=== PATIENT | male | born 1975 | race Caucasian/White ===

== ENCOUNTER 2020-11-08 11:45 | Emergency (ER) | payer OTHER, SELFPAY ==
--- NOTE | ~2020-11-08 | XR_ITS ---
EXAMINATION: XR chest 1V portable INDICATION: Shortness of breath TECHNIQUE: Portable AP chest at 1206 hours COMPARISON: 09/03/2008 FINDINGS: The lungs are free of acute opacities. A chronic nodule of the left lower lung zone is cons istent with old granulomatous disease. There is no pleural effusion or pneumothorax. The cardiomedias tinal silhouette is normal. IMPRESSION: 1. No acute cardiopulmonary abnormality. Reviewed, dictated and finalized at location A. ROTOR CREW CHIEF
--- NOTE | 2020-11-08 11:47 | ECG_ITS ---
Measurements Intervals [place] Rate: 68 P: 51 AK: 185 QRS: -22 QRSD: 99 T: 21 QT: 414 QTc: 442 Interpretive Statements SINUS RHYTHM BASELINE ARTIFACT- II, III, AVF NORMAL ECG Electronically Signed On 11-08-2020 12:39:16 PACKAGING LINE ATTENDANT by Edgard Guerrier D.O.
[2020-11-08 12:02] VITALS: BP 196/99; PULSE 70; RESP 16; TEMP 36.9; O2SAT 96
[2020-11-08 12:13] VITALS: O2SAT 96
[2020-11-08 12:16] LABS: Basophils Percent Auto 0.4 % (0.2-1.2); Eosinophils Absolute Auto 0.2 K/mm3 (0-0.3); Eosinophils Percent Auto 2.6 % (0-4.4); Hematocrit 45.3 % (42.0-52.0); Hemoglobin 15.6 g/dL (14.0-18.0); Immature Granulocyte Absolute 0.03 K/mm3 (0.00-0.031); Immature Granulocyte Percent A 0.3 % (0-0.5); Lymphocytes Percent Auto 31.3 % (18.3-44.2); Mean Corpuscular HGB Conc 34.4 g/dl (32-36); Mean Corpuscular Volume 95.8 fl (80-100); Mean Platelet Volume 10.8 fl (7.4-10.4); Monocytes Absolute Auto 0.8 K/mm3 (0.1-0.6); Monocytes Percent Auto 8.7 % (2.6-8.5); Neutrophils Absolute Auto 5.1 K/mm3 (1.3-6.7); Neutrophils Percent Auto 56.7 % (45.5-73.1); Platelet Count Result 220 k/mm3 (150-375); Red Blood Count 4.73 M/mm3 (4.6-6.20); Red Cell Distribution Width 12.5 % (11.5-14.5)
[2020-11-08 12:47] LABS: Anion Gap 10 mmol/L (8-16); Blood Urea Nitrogen 17 mg/dL (9-20); Calcium 8.8 mg/dL (8.4-10.2); Carbon Dioxide 27 mmol/L (22-30); Chloride 102 mmol/L (98-107); Estimated Glomerular Filt Rate > 60; Glucose 108 mg/dL (75-110); Potassium 4.2 mmol/L (3.4-5.0); Sodium 139 mmol/L (137-145)
--- NOTE | 2020-11-08 12:58 | ED.SOB ---
HPI - SOB/Dyspnea General Chief Complaint: Shortness of Breath/Dyspnea Stated Complaint: left arm pain, sob, nausea Time Seen by Provider: 11/08/20 12:09 History of Present Illness HPI Narrative: Patient is a 44-year-old male who presents ER with exertional shortness of breath. Began today when he walked into work. Associated with central chest tingling. Reoccurred when coming into the ER. Patient also notes that blood pressures been running higher than typical. Typically his systolic blood pressures in the 130s. Upon arrival today his blood pressures in the 190s systolic. Patient reports he felt the lightheadedness after his exertional shortness of breath. Has mild nausea. Patient also reports over the last 3 to 4 days he has been having less than 1 second sharp shooting pain from his left elbow down to his left hand. It is not associate with exertion referred here by his PCP. Related Data Home Medications Medication Instructions Recorded Confirmed cetirizine 10 mg tablet 10 mg PO DAILY 08/23/19 08/23/20 Allergies Allergy/AdvReac Type Severity Reaction Status Date / Time metformin AdvReac Severe explosive Verified 05/10/20 10:22 diarrhea and cramps Review of Systems Review of Systems: All systems reviewed & are unremarkable except as noted in HPI and below Constitutional: Constitutional: Denies chills, Denies fever(s) and Denies weakness ENT: Denies as per HPI and Denies nasal congestion Cardiovascular: Cardiovascular: Reports chest pain, Denies rapid heart rate and Denies radiating jaw, neck or arm pain Respiratory: Respiratory: Denies cough, Reports dyspnea and Denies wheezing Gastrointestinal: Gastrointestinal: Denies abdominal pain, Denies diarrhea, Reports nausea and Denies vomiting Musculoskeletal: Musculoskeletal: Denies back pain, Denies arthralgias and Denies muscle cramps Neurologic: Reports dizziness, Denies headache(s), Denies focal weakness and Denies numbness PMF Past Medical History Medical History (Updated 11/08/20 @ 16:02 by Ronny Davis MD) Essential (primary) hypertension Mixed hyperlipidemia Type 2 diabetes mellitus with hyperglycemia Surgical History Surgical History (Updated 11/08/20 @ 13:01 by Ronny Davis MD) No pertinent past surgical history Family History Family History (Updated 11/08/20 @ 13:01 by Ronny Davis MD) Mother Hypertension Father Heart disease 2 MIs by the age of 46. Social History Social History Smoking status: Former smoker Second hand tobacco smoke exposure: No Smoking end date: 09/21/14 Alcohol intake: current Exam Narrative: Exam Narrative: GENERAL: Well-appearing, morbidly obese, and in no acute distress. HEAD: Normocephalic, atraumatic. ENT: Mucous membranes moist. CHEST: Clear to auscultation. No respiratory distress. HEART: Regular rate and rhythm. Normal peripheral pulses. ABDOMEN: Soft, nontender, nondistended. EXTREMITIES: Normal range of motion. No edema. SKIN: Warm, dry, no rash. NEURO: Alert and oriented x3. Course Course Emergency Course: Patient resting comfortably. Chest pain-free. Troponins negative x2. Blood pressures come down on his own. Discussed with patient's PCP who would like patient follow-up outpatient for stress test. He would like the patient started on clonidine 0.1 mg twice a day. Patient verbalized understanding of treatment plan. Discharge home. Vital Signs Vital signs: Vital Signs Temperature 98.4 F 11/08/20 12:02 Pulse Rate 70 11/08/20 12:02 Respiratory Rate 16 11/08/20 12:02 Blood Pressure 196/99 H 11/08/20 12:02 Pulse Oximetry 96 11/08/20 12:02 Temperature 98.4 F 11/08/20 12:02 Pulse Rate 69 11/08/20 14:11 Respiratory Rate 20 11/08/20 14:11 Blood Pressure 171/93 H 11/08/20 14:11 Pulse Oximetry 95 11/08/20 14:11 MDM - SOB/Dyspnea Lab Data Result
[2020-11-08 13:19] VITALS: BP 183/88; PULSE 96; RESP 17; O2SAT 96
[2020-11-08 13:39] LABS: Troponin I < 0.012 ng/mL (0.000-0.034)
[2020-11-08 14:11] VITALS: BP 171/93; PULSE 69; RESP 20; O2SAT 95
[2020-11-08] MEDS: cloNIDine HCL 0.1 MG TABLET PO (14:37)
[2020-11-08 15:30] VITALS: BP 138/90; PULSE 74; RESP 16; O2SAT 96
[2020-11-08 15:46] LABS: Troponin I < 0.012 ng/mL (0.000-0.034)
[2020-11-08 16:31] VITALS: BP 138/88; PULSE 80; RESP 18; O2SAT 97
== END 2020-11-08 16:33 | disposition home or self-care (01) ==
PROVIDERS: Emergency Provider Emergency Medicine; PCP Internal Medicine
DX: R07.9 Chest pain, unspecified (principal); I10 Essential (primary) hypertension; E78.5 Hyperlipidemia, unspecified; E11.9 Type 2 diabetes mellitus without complications
CPT/HCPCS: 36415; 71045; 80048; 84484; 85025; 93005; 99284; A9270

== ENCOUNTER 2020-12-26 08:15 | Outpatient (CLI) | payer OTHER, SELFPAY | END 2020-12-26 08:16 | disposition home or self-care (01) | LOC: ANHCOVIDVC 08:15 | PROVIDERS: PCP Internal Medicine | DX: Z23 Encounter for immunization (principal) | CPT/HCPCS: 0001A; 91300 ==

== ENCOUNTER 2021-01-16 08:32 | Outpatient (CLI) | payer OTHER, SELFPAY | END 2021-01-16 08:33 | PROVIDERS: PCP Internal Medicine | DX: Z23 Encounter for immunization (principal) | CPT/HCPCS: 0002A; 91300 ==

== ENCOUNTER → 2021-07-24 16:56 | Outpatient (CLI) | payer OTHER, SELFPAY ==
--- NOTE | ~2021-07-24 | XR_ITS ---
XR ankle LT min 3V DATE: 07/24/2021 17:13 INDICATION: Achilles tendinitis TECHNIQUE: 4 views COMPARISON: None FINDINGS: There is prominent plantar and posterior calcaneal enthesopathy as well as 3.3 x 10 mm stanley cification of the plantar aponeurosis. No fracture or dislocation of the ankle or disruption of the ankle mortise. No periosteal reaction or bone destruction. IMPRESSION: Prominent plantar and posterior calcaneal enthesopathy and plantar aponeurosis calcificat ion Reviewed, dictated and finalized at location A. IMPRESSION: Prominent plantar and posterior calcaneal enthesopathy and plantar aponeurosis calcification
== END ==
PROVIDERS: PCP Internal Medicine; Visit Provider Internal Medicine
DX: M76.62 Achilles tendinitis, left leg (principal); M77.32 Calcaneal spur, left foot
CPT/HCPCS: 73610

== ENCOUNTER 2021-07-31 01:01 | Day surgery (SDC) | payer OTHER, SELFPAY ==
[2021-07-16 13:49] VITALS: BMI 40.6
[2021-07-31 09:58] VITALS: BP 158/93; PULSE 82; RESP 18; TEMP 36.3; O2SAT 96
[2021-07-31] MEDS: LACTATED RINGERS 1,000 ML 150 ML IV CONT (10:08)
[2021-07-31 10:25] LABS: Glucose Point of Care 142 mg/dl (65-105)
--- NOTE | 2021-07-31 10:29 | WPDANESEPPF ---
Anes - Initial Pre Proc Eval Procedure: Operation Date: 07/31/21 11:00 Proposed Procedures p Esophagogastroduodenoscopy - Lukas Fletcher MD Date/Time: 07/31/21 10:29 Surgeon: Lukas Fletcher MD Pre Op Diagnosis: abdominal pain, GERD Patient Data Age: 45 Gender: M Height: 1.83 m Weight: 150.8 kg Last Vital Signs Temp 36.3 C L 07/31/21 09:58 Pulse 82 07/31/21 09:58 Resp 18 07/31/21 09:58 BP 158/93 H 07/31/21 09:58 Pulse Ox 96 07/31/21 09:58 Allergies Allergy/AdvReac Type Severity Reaction Status Date / Time No Known Allergies Allergy Verified 07/31/21 09:55 Home Medications Medication Instructions Recorded Confirmed Type glimepiride 4 mg tablet 4 mg PO QAM #90 tablet 11/12/20 07/16/21 Rx enalapril maleate 10 mg tablet 10 mg PO DAILY #90 tablet 11/20/20 07/16/21 Rx fenofibric acid (choline) 135 mg 135 mg PO DAILY #90 cap 03/18/21 07/16/21 Rx capsule,delayed release metoprolol succinate 100 mg 100 mg PO DAILY #90 tablet 03/18/21 07/16/21 Rx tablet,extended release 24 hr pioglitazone 15 mg tablet 15 mg PO DAILY #90 tablet 05/28/21 07/16/21 Rx atorvastatin 10 mg tablet 10 mg PO DAILY #90 tablet 07/22/21 07/31/21 Rx Laboratory Tests 07/31/21 10:23 POC Capillary Glucose 142 mg/dl H mg/dl (65-105) Patient hx anesthesia problems: none Family hx anesthesia problems: none Results Review: All pre-operative results and documents have been reviewed as part of the pre-operative evaluation. [facility] Past Medical History Medical History Essential (primary) hypertension Mixed hyperlipidemia Type 2 diabetes mellitus with hyperglycemia Surgical History Surgical History No pertinent past surgical history Family History Family History Mother Hypertension Father Heart disease 2 MIs by the age of 46. Social History Social History Smoking packs per day: 1 Smoking cigarettes per day: 20.0 Years smoked: 35 Smoking pack-years: 35.00 Tobacco type: cigarettes Second hand tobacco smoke exposure: No Smoking end date: 09/21/14 Alcohol intake: current Drinks per week: 56 Alcohol use details: 8 BEERS/DAY, MIXED WITH HARD LIQUOR AT TIMES Substance use: current Substance use type: marijuana Other substance usage details: SMOKES MARIJUANA DAILY Living arrangements: with family Spiritual care concerns: No Anes - Eval Final PreProcedure Day of Procedure 07/31/21 10:29 Patient weight: obese Heart: regular rate and rhythm Lungs: clear to auscultation and normal air movement Airway: Mallampati scale class II Neurological: alert and oriented Last oral intake: >/= 8 hours ASA classification: III Emergent: no Anesthetic plan: proceed Anesthesia type and monitoring: general GIVS Results Review: All pre-operative results and documents have been reviewed as part of the pre-operative evaluation. Informed Consent: The patient's anesthetic plan and its attendant risks and benefits were discussed with the patient/family/POA. Questions were solicited and answers provided to the satisfaction of the patient/family/POA.
--- NOTE | 2021-07-31 11:01 | PM.HPGS ---
History of Present Illness History of Present Illness Consent: Risks, benefits, and alternatives have been discussed and questions answered. Patient agrees to proceed with procedure. Chief complaint: abdominal pain, GERD Narrative: Orlando Gonsales is a 45 year old male with ruq pain, had ultrasound that showed fatty liver (he is obese), also he has h/o GERD Review of Systems Constitutional: Constitutional: Denies headache(s) and Denies weakness Eyes: Eyes: Denies blurry vision ENT: Reports Normal hearing present, Denies headache(s) and Denies neck pain Cardiovascular: Cardiovascular: Denies chest pain and Denies dyspnea Respiratory: Respiratory: Denies dyspnea Gastrointestinal: Gastrointestinal: Reports no additional gastrointestinal complaints Genitourinary: Genitourinary: Denies dysuria Musculoskeletal: Musculoskeletal: Denies neck pain Integumentary/Breasts: Skin/Breast: Denies dry skin Neurologic: Reports Normal hearing present, Denies headache(s) and Denies weakness Psychiatric: Psychiatric: Denies anxiety Endocrine: Endocrine: Denies change in body appearance Hematologic/Lymphatic: Hematologic/Lymphatic: Denies easy bleeding Allergic/Immunologic: Allergic/Immunologic: Denies urticaria PMFSH Past Medical History Medical History (Updated 07/31/21 @ 11:02 by Lukas Fletcher MD) Essential (primary) hypertension Mixed hyperlipidemia RUQ pain Type 2 diabetes mellitus with hyperglycemia Surgical History Surgical History No pertinent past surgical history Family History Family History Mother Hypertension Father Heart disease 2 MIs by the age of 46. Social History Social History Smoking packs per day: 1 Smoking cigarettes per day: 20.0 Years smoked: 35 Smoking pack-years: 35.00 Tobacco type: cigarettes Second hand tobacco smoke exposure: No Smoking end date: 09/21/14 Alcohol intake: current Drinks per week: 56 Alcohol use details: 8 BEERS/DAY, MIXED WITH HARD LIQUOR AT TIMES Substance use: current Substance use type: marijuana Other substance usage details: SMOKES MARIJUANA DAILY Living arrangements: with family Spiritual care concerns: No Meds Home Medications and Allergies Home Medications Medication Instructions Recorded Confirmed Type glimepiride 4 mg tablet 4 mg PO QAM #90 tablet 11/12/20 07/16/21 Rx enalapril maleate 10 mg tablet 10 mg PO DAILY #90 tablet 11/20/20 07/16/21 Rx fenofibric acid (choline) 135 mg 135 mg PO DAILY #90 cap 03/18/21 07/16/21 Rx capsule,delayed release metoprolol succinate 100 mg 100 mg PO DAILY #90 tablet 03/18/21 07/16/21 Rx tablet,extended release 24 hr pioglitazone 15 mg tablet 15 mg PO DAILY #90 tablet 05/28/21 07/16/21 Rx atorvastatin 10 mg tablet 10 mg PO DAILY #90 tablet 07/22/21 07/31/21 Rx Allergies Allergy/AdvReac Type Severity Reaction Status Date / Time No Known Allergies Allergy Verified 07/31/21 09:55 Vital Signs Vital Signs - 24 hr 07/31/21 09:58 Temperature 97.4 F L Pulse Rate 82 Respiratory Rate 18 Blood Pressure 158/93 H Pulse Oximetry 96 Exam Const: General: comfortable and no acute distress HENMT: General nose exam: Normal nares present Eyes: General: appearance normal, both eyes and all related structures Neck: Neck: no JVD Resp: Auscultation: clear to auscultation bilaterally Cardio: Rate: regular rate Rhythm: regular rhythm GI: Inspection: non-distended GI Palp: Yes Soft to palpation Skin: General skin exam: normal color Neuro: General: gait normal Speech: normal speech Extrem: General: normal to inspection Psych: Mental Status: mental status grossly normal Assessment and Plan Assessment and plan (1) RUQ pain: Code(s): R10.11 - Right upper quadrant pa
[2021-07-31] MEDS: BENZOCAINE (*SP) 60 ML SPRAY CAN (HURRICAINE) 1 SPRAY MUCOUS MEM (11:05)
[2021-07-31 11:18] VITALS: BP 141/84; PULSE 77; RESP 24; O2SAT 95
[2021-07-31 11:28] VITALS: BP 145/79; PULSE 64; RESP 17; O2SAT 93
[2021-07-31 11:38] VITALS: BP 132/83; PULSE 62; RESP 19; O2SAT 95
== END 2021-07-31 11:53 | disposition home or self-care (01) ==
PROVIDERS: PCP Internal Medicine; Visit Provider Internal Medicine Gastroenterology
PROC: 0DJ08ZZ Inspection of Upper Intestinal Tract, Via Natural or Artificial Opening Endoscopic (ICD-10-PCS; CPT 43235; principal; 2021-07-31 11:00)
DX: K21.9 Gastro-esophageal reflux disease without esophagitis (principal); K29.70 Gastritis, unspecified, without bleeding; K76.0 Fatty (change of) liver, not elsewhere classified; I10 Essential (primary) hypertension; E78.2 Mixed hyperlipidemia; E11.9 Type 2 diabetes mellitus without complications; Z79.84 Long term (current) use of oral hypoglycemic drugs; Z87.891 Personal history of nicotine dependence; F12.90 Cannabis use, unspecified, uncomplicated; E66.9 Obesity, unspecified; Z68.42 Body mass index [BMI] 45.0-49.9, adult
CPT/HCPCS: 43239; 82948; 88305; J2704; J7120

== ENCOUNTER 2022-05-16 08:29 | Outpatient (CLI) | payer OTHER, SELFPAY ==
[2022-05-16 19:26] LABS: Cholesterol 116 mg/dL (0-200); HDL Direct 34 mg/dL; Triglycerides 135 mg/dL (<150)
[2022-05-16 19:37] LABS: LDL Cholesterol Direct 42 mg/dL
[2022-05-16 19:42] LABS: Hemoglobin A1C 5.1 % (<5.7)
[2022-05-16 19:53] LABS: Creatinine Urine 130.4 mg/dL
[2022-05-16 19:57] LABS: MALB Creatinine Ratio 16.3 mg/g (0-30); Microalbumin Urine Random 21.2 mg/L (0-16.7)
== END 2022-05-16 08:30 | disposition home or self-care (01) ==
LOC: ANHGOSHLAB 08:30
PROVIDERS: PCP Family Medicine; Visit Provider Internal Medicine
DX: E11.9 Type 2 diabetes mellitus without complications (principal); E78.2 Mixed hyperlipidemia
CPT/HCPCS: 36415; 80061; 82043; 83036

== ENCOUNTER 2022-11-21 08:59 | Outpatient (CLI) | payer OTHER, SELFPAY ==
[2022-11-21 18:48] LABS: Cholesterol 146 mg/dL (0-200); HDL Direct 31 mg/dL; Triglycerides 172 mg/dL (<150)
[2022-11-21 18:59] LABS: LDL Cholesterol Direct 74 mg/dL
[2022-11-21 19:25] LABS: Hemoglobin A1C 7.6 % (<5.7)
== END 2022-11-21 09:00 | disposition home or self-care (01) ==
LOC: ANHGOSHLAB 09:01
PROVIDERS: PCP Family Medicine; Visit Provider Family Medicine
DX: E11.9 Type 2 diabetes mellitus without complications (principal); E78.2 Mixed hyperlipidemia
CPT/HCPCS: 36415; 80061; 83036

== ENCOUNTER 2023-03-23 09:10 | Outpatient (CLI) | payer OTHER, SELFPAY ==
[2023-03-23 19:19] LABS: Basophils Percent Auto 0.4 % (0.2-1.2); Eosinophils Absolute Auto 0.1 K/mm3 (0-0.3); Eosinophils Percent Auto 1.6 % (0-4.4); Hematocrit 41.2 % (42.0-52.0); Hemoglobin 14.4 g/dL (14.0-18.0); Immature Granulocyte Absolute 0.03 K/mm3 (0.00-0.031); Immature Granulocyte Percent A 0.4 % (0-0.5); Lymphocytes Absolute Auto 2.43 K/mm3 (0.9-3.2); Lymphocytes Percent Auto 32.5 % (18.3-44.2); Mean Corpuscular Hemoglobin 32.4 pg (26-34); Mean Corpuscular Volume 92.8 fl (80-100); Mean Platelet Volume 11.1 fl (7.4-10.4); Monocytes Absolute Auto 0.7 K/mm3 (0.1-0.6); Monocytes Percent Auto 8.7 % (2.6-8.5); Neutrophils Absolute Auto 4.2 K/mm3 (1.3-6.7); Neutrophils Percent Auto 56.4 % (45.5-73.1); Platelet Count Result 218 k/mm3 (150-375); Red Blood Count 4.44 M/mm3 (4.6-6.20); Red Cell Distribution Width 12.4 % (11.5-14.5); White Blood Count 7.5 K/mm3 (4.5-10.0)
[2023-03-23 19:46] LABS: Creatinine Urine 71.8 mg/dL
[2023-03-23 19:49] LABS: MALB Creatinine Ratio 22.8 mg/g (0-30); Microalbumin Urine Random 16.4 mg/L (0-16.7)
[2023-03-23 19:54] LABS: Alanine Aminotransferase 35 U/L (6-50); Albumin Level 4.7 g/dL (3.5-5.1); Alkaline Phosphatase 55 U/L (38-126); Anion Gap 10 mmol/L (8-16); Aspartate Amino Transferase 49 U/L (17-59); Bilirubin,Total 0.6 mg/dL (0.2-1.3); Blood Urea Nitrogen 16 mg/dL (9-20); Calcium 8.9 mg/dL (8.4-10.2); Carbon Dioxide 27 mmol/L (22-30); Chloride 100 mmol/L (98-107); Cholesterol 141 mg/dL (0-200); Estimated Glomerular Filt Rate > 60; Glucose 104 mg/dL (65-110); HDL Direct 39 mg/dL; Sodium 137 mmol/L (137-145); Triglycerides 234 mg/dL (<150)
[2023-03-23 20:05] LABS: LDL Cholesterol Direct 57 mg/dL
[2023-03-23 20:59] LABS: Folic Acid 6.1 ng/mL (2.76->20)
[2023-03-23 21:01] LABS: Hemoglobin A1C 5.8 % (<5.7)
== END 2023-03-23 09:11 | disposition home or self-care (01) ==
LOC: ANHGOSHLAB 09:11
PROVIDERS: PCP Family Medicine; Visit Provider Family Medicine
DX: E11.9 Type 2 diabetes mellitus without complications (principal); G62.9 Polyneuropathy, unspecified; Z13.220 Encounter for screening for lipoid disorders; R53.83 Other fatigue; Z13.228 Encounter for screening for other metabolic disorders
CPT/HCPCS: 36415; 80053; 80061; 82043; 82607; 82746; 83036; 85025

== ENCOUNTER 2023-08-17 14:54 | Outpatient (CLI) | payer OTHER, SELFPAY ==
[2023-08-17 19:11] LABS: Uric Acid 9.8 mg/dL (3.5-8.5)
== END 2023-08-17 14:55 | disposition home or self-care (01) ==
LOC: ANHGOSHLAB 14:55
PROVIDERS: PCP Family Medicine; Visit Provider Family Medicine
DX: M10.9 Gout, unspecified (principal)
CPT/HCPCS: 36415; 84550

== ENCOUNTER 2023-10-15 15:04 | Outpatient (CLI) | payer OTHER, SELFPAY ==
[2023-10-15 19:10] LABS: Basophils Percent Auto 0.5 % (0.2-1.2); Eosinophils Absolute Auto 0.3 K/mm3 (0-0.3); Eosinophils Percent Auto 3.7 % (0-4.4); Hematocrit 45.1 % (42.0-52.0); Hemoglobin 15.7 g/dL (14.0-18.0); Immature Granulocyte Absolute 0.02 K/mm3 (0.00-0.031); Immature Granulocyte Percent A 0.3 % (0-0.5); Lymphocytes Absolute Auto 2.66 K/mm3 (0.9-3.2); Lymphocytes Percent Auto 36.1 % (18.3-44.2); Mean Corpuscular HGB Conc 34.8 g/dl (32-36); Mean Corpuscular Hemoglobin 33.5 pg (26-34); Mean Corpuscular Volume 96.2 fl (80-100); Monocytes Absolute Auto 0.9 K/mm3 (0.1-0.6); Monocytes Percent Auto 11.7 % (2.6-8.5); Neutrophils Absolute Auto 3.5 K/mm3 (1.3-6.7); Neutrophils Percent Auto 47.7 % (45.5-73.1); Platelet Count Result 240 k/mm3 (150-375); Red Blood Count 4.69 M/mm3 (4.6-6.20); White Blood Count 7.4 K/mm3 (4.5-10.0)
[2023-10-15 19:35] LABS: Alanine Aminotransferase 31 U/L (6-50); Albumin Level 4.4 g/dL (3.5-5.1); Alkaline Phosphatase 62 U/L (38-126); Anion Gap 10 mmol/L (8-16); Aspartate Amino Transferase 54 U/L (17-59); Bilirubin,Total 0.5 mg/dL (0.2-1.3); Blood Urea Nitrogen 17 mg/dL (9-20); Calcium 9.1 mg/dL (8.4-10.2); Carbon Dioxide 27 mmol/L (22-30); Chloride 103 mmol/L (98-107); Cholesterol 193 mg/dL (0-200); Estimated Glomerular Filt Rate > 60; Glucose 84 mg/dL (65-110); HDL Direct 51 mg/dL; Potassium 5.1 mmol/L (3.4-5.0); Sodium 140 mmol/L (137-145); Triglycerides 250 mg/dL (<150)
[2023-10-15 19:45] LABS: LDL Cholesterol Direct 111 mg/dL
[2023-10-15 20:02] LABS: Prostate Specific Antigen 0.7 ng/mL (< OR = 4.0)
[2023-10-15 22:02] LABS: Hemoglobin A1C 5.9 % (<5.7)
== END 2023-10-15 15:05 | disposition home or self-care (01) ==
LOC: ANHGOSHLAB 15:05
PROVIDERS: PCP Family Medicine; Visit Provider Family Medicine
DX: Z13.220 Encounter for screening for lipoid disorders (principal); Z13.228 Encounter for screening for other metabolic disorders; Z12.5 Encounter for screening for malignant neoplasm of prostate; R53.83 Other fatigue; E11.9 Type 2 diabetes mellitus without complications
CPT/HCPCS: 36415; 80053; 80061; 83036; 84153; 85025; G0103

== ENCOUNTER 2023-10-23 10:07 | Emergency (ER) | payer OTHER, SELFPAY ==
--- NOTE | ~2023-10-23 | XR_ITS ---
Clinical Indication: Chest pain PA and lateral views of the chest: Comparison: 11/08/2020 Findings: Calcified granulomas are present. The lungs are otherwise clear, without evidence of focal consolidation or pleural effusion. Cardiomediastinal silhouette is within normal limits. Bones and s oft tissues are unremarkable. Impression: No acute abnormality. Reviewed, dictated and finalized at location . L MEAT PACKER Impression: No acute abnormality.
--- NOTE | 2023-10-23 10:08 | ECG_ITS ---
Measurements Intervals [place] Rate: 64 P: 3 UT: 151 QRS: -25 QRSD: 97 T: 24 QT: 417 QTc: 433 Interpretive Statements SINUS RHYTHM BORDERLINE LEFT AXIS DEVIATION [QRS AXIS < -20] LOW QRS VOLTAGE IN PRECORDIAL LEADS [QRS DEFLECTION < 1.0 mV IN CHEST LEADS] BORDERLINE ECG COMPARED TO ECG 11/08/2020 11:56:12 NO SIGNIFICANT CHANGES Electronically Signed On 10-23-2023 13:53:44 CIRCULAR SAW FILER by Orlando Hart M.D.
[2023-10-23 10:36] LABS: Basophils Percent Auto 0.5 % (0.2-1.2); Eosinophils Absolute Auto 0.2 K/mm3 (0-0.3); Eosinophils Percent Auto 3.9 % (0-4.4); Hemoglobin 14.6 g/dL (14.0-18.0); Immature Granulocyte Absolute 0.01 K/mm3 (0.00-0.031); Immature Granulocyte Percent A 0.2 % (0-0.5); Lymphocytes Absolute Auto 1.79 K/mm3 (0.9-3.2); Lymphocytes Percent Auto 31.5 % (18.3-44.2); Mean Corpuscular HGB Conc 33.2 g/dl (32-36); Mean Corpuscular Hemoglobin 32.2 pg (26-34); Mean Corpuscular Volume 97.1 fl (80-100); Mean Platelet Volume 10.5 fl (7.4-10.4); Monocytes Absolute Auto 0.6 K/mm3 (0.1-0.6); Monocytes Percent Auto 9.9 % (2.6-8.5); Neutrophils Absolute Auto 3.1 K/mm3 (1.3-6.7); Platelet Count Result 168 k/mm3 (150-375); Red Blood Count 4.53 M/mm3 (4.6-6.20); Red Cell Distribution Width 12.4 % (11.5-14.5); White Blood Count 5.7 K/mm3 (4.5-10.0)
[2023-10-23 10:50] LABS: Alanine Aminotransferase 34 U/L (6-50); Albumin Level 4.2 g/dL (3.5-5.1); Alkaline Phosphatase 53 U/L (38-126); Anion Gap 7 mmol/L (8-16); Aspartate Amino Transferase 40 U/L (17-59); Bilirubin,Total 0.9 mg/dL (0.2-1.3); Blood Urea Nitrogen 17 mg/dL (9-20); Calcium 8.7 mg/dL (8.4-10.2); Carbon Dioxide 27 mmol/L (22-30); Chloride 103 mmol/L (98-107); Estimated Glomerular Filt Rate > 60; Glucose 157 mg/dL (65-110); Lipase 63 U/L (23-300); Potassium 3.8 mmol/L (3.4-5.0); Sodium 137 mmol/L (137-145)
[2023-10-23 10:51] LABS: Prothrombin Time 13.1 Seconds (11.1-14.7)
[2023-10-23 10:52] LABS: Partial Thromboplastin Time 26.1 SECONDS (22.3-36.8)
[2023-10-23 11:00] LABS: Troponin I < 0.012 ng/mL (0.000-0.034)
[2023-10-23 11:12] VITALS: BP 153/99; PULSE 63; RESP 15; TEMP 36.4; O2SAT 98
[2023-10-23] MEDS: ASPIRIN 81 MG CHEWABLE TABLET 324 MG PO (13:37)
--- NOTE | 2023-10-23 13:42 | ED.CHESTPAIN ---
HPI - Chest Pain General Chief Complaint: Chest Pain Stated Complaint: left sided CP Time Seen by Provider: 10/23/23 13:42 History of Present Illness HPI narrative: Patient is a 47-year-old male with history of diabetes, hypertension, hyperlipidemia here with chest pain x several months. Patient notes that he has had intermittent chest pains in the past which are usually attributed to his GERD and come on after eating something. He notes that a few months ago it began similarly. He went out to eat and ate something that is noted trigger his GERD in the past. He woke up the next day with chest pain. He notes that it is located on his left upper chest and behind his left shoulder. It occasionally radiates into his neck as well as his left arm. He did things at home which usually helps which include doubling his Nexium, sleeping upright, altering his diet to help with his acid reflux and none of these seemed to be helping this time. He then got a chest cold a couple weeks ago, with symptoms including cough, chest congestion, these have been resolved for the last 1 week. His chest pain has continued which prompted him to come in and get seen to check how his heart is looking. No prior cardiac disease in himself, his father did have multiple heart attacks before the age of 40. Last stress test was a few years ago, normal, no prior cardiac cath. Related Data Home Medications Medication Instructions Recorded Confirmed amlodipine 10 mg tablet 10 mg PO DAILY 06/05/23 08/17/23 doxazosin 2 mg tablet 2 mg PO DAILY 06/05/23 08/17/23 Allergies Allergy/AdvReac Type Severity Reaction Status Date / Time No Known Allergies Allergy Verified 10/15/23 14:19 Review of Systems Review of Systems: All systems reviewed & are unremarkable except as noted in HPI and below [facility] Past Medical History Medical History Essential (primary) hypertension Mixed hyperlipidemia RUQ pain Type 2 diabetes mellitus with hyperglycemia Surgical History Surgical History No pertinent past surgical history Family History Family History Mother Hypertension Father Heart disease 2 MIs by the age of 46. Social History Social History Smoking packs per day: 1 Smoking cigarettes per day: 20.0 Years smoked: 35 Smoking pack-years: 35.00 Smoking status: Former smoker Tobacco type: cigarettes Second hand tobacco smoke exposure: No Smoking end date: 09/21/14 Alcohol intake: current Drinks per week: 30 Alcohol use details: 8 BEERS/DAY, MIXED WITH HARD LIQUOR AT TIMES Substance use: current Substance use type: marijuana Other substance usage details: SMOKES MARIJUANA DAILY Living arrangements: with family Spiritual care concerns: No Exam Narrative: GENERAL: Well-appearing, well-nourished, and in no acute distress. HEAD: Normocephalic, atraumatic. EYES: PERRLA and EOMI. ENT: Nares clear. Mucous membranes moist. NECK: Supple. CHEST: Clear to auscultation. No respiratory distress. HEART: Regular rate and rhythm. Normal peripheral pulses. ABDOMEN: Soft, nontender, nondistended. EXTREMITIES: Normal range of motion. Reproducible mild tenderness on the anterior and posterior left shoulder. No edema. SKIN: Warm, dry, no rash. NEURO: No focal deficits. Alert and oriented x3. PSYCH: Normal mood and affect. Course Course Emergency Course: Chart review performed. Patient here with left sided chest pain x several months. Triage vitals normal. PCP visit note from 10/15/23 reviewed. They note history of HTN, HLD, T2DM. Triage chest pain workup reviewed. CBC grossly normal, CMP grossly normal, Initial troponin negative. Patient seen evaluated, nontoxic appearing. Pain is somewhat reproducible over his shoulder reg
[2023-10-23 14:02] VITALS: BP 131/78; PULSE 57; RESP 14
[2023-10-23 14:11] LABS: Troponin I < 0.012 ng/mL (0.000-0.034)
[2023-10-23 14:16] VITALS: BP 137/85; PULSE 61; RESP 15; O2SAT 98
[2023-10-23] MEDS: BELLADONNA ALK/PHENOB ELIX 10 ML, MAG HYDROX/ALUMINUM HYD/SIMETH 30 ML, LIDOCAINE HCL 2... PO (14:24)
[2023-10-23] MEDS: PANTOPRAZOLE SODIUM IV 40 MG VIAL IV PUSH (14:25)
[2023-10-23 15:36] VITALS: BP 144/92; PULSE 55; RESP 15; O2SAT 95
[2023-10-23 15:46] VITALS: BP 122/80; PULSE 50; RESP 14; TEMP 36.6; O2SAT 96
[2023-10-23 15:47] VITALS: PULSE 53; RESP 15; O2SAT 96
== END 2023-10-23 16:10 | disposition home or self-care (01) ==
PROVIDERS: Emergency Medicine; Emergency Provider Student in an Organized Health Care Education/Training Program; PCP Family Medicine
DX: R07.89 Other chest pain (principal); I10 Essential (primary) hypertension; E11.9 Type 2 diabetes mellitus without complications; E78.2 Mixed hyperlipidemia; K21.9 Gastro-esophageal reflux disease without esophagitis; Z87.891 Personal history of nicotine dependence; R94.31 Abnormal electrocardiogram [ECG] [EKG]
CPT/HCPCS: 36415; 71046; 80053; 83690; 84484; 85025; 85610; 85730; 93005; 96374; 99284; A9270; C9113

== ENCOUNTER 2024-11-30 09:51 | Outpatient (CLI) | payer OTHER, SELFPAY ==
[2024-11-30 13:24] LABS: Basophils Percent Auto 0.4 % (0.2-1.2); Eosinophils Absolute Auto 0.2 K/mm3 (0-0.3); Eosinophils Percent Auto 2.5 % (0-4.4); Hematocrit 46.9 % (42.0-52.0); Hemoglobin 15.5 g/dL (14.0-18.0); Immature Granulocyte Absolute 0.01 K/mm3 (0.00-0.031); Immature Granulocyte Percent A 0.1 % (0-0.5); Lymphocytes Absolute Auto 2.44 K/mm3 (0.9-3.2); Mean Corpuscular Hemoglobin 31.2 pg (26-34); Mean Corpuscular Volume 94.4 fl (80-100); Mean Platelet Volume 11.7 fl (7.4-10.4); Monocytes Percent Auto 14.5 % (2.6-8.5); Neutrophils Absolute Auto 3.2 K/mm3 (1.3-6.7); Neutrophils Percent Auto 46.5 % (45.5-73.1); Platelet Count Result 186 k/mm3 (150-375); Red Blood Count 4.97 M/mm3 (4.6-6.20); Red Cell Distribution Width 12.9 % (11.5-14.5); White Blood Count 6.8 K/mm3 (4.5-10.0)
[2024-11-30 14:40] LABS: Creatinine Urine 134.8 mg/dL
[2024-11-30 14:42] LABS: Microalbumin Urine Random 20.2 mg/L (0-16.7)
[2024-11-30 15:39] LABS: Alanine Aminotransferase 50 U/L (6-50); Albumin Level 4.9 g/dL (3.5-5.1); Alkaline Phosphatase 68 U/L (38-126); Anion Gap 7 mmol/L (4-12); Aspartate Amino Transferase 57 U/L (17-59); Bilirubin,Total 0.9 mg/dL (0.2-1.3); Blood Urea Nitrogen 19 mg/dL (9-20); Calcium 9.4 mg/dL (8.4-10.2); Carbon Dioxide 29 mmol/L (22-30); Chloride 102 mmol/L (98-107); Cholesterol 184 mg/dL (0-200); Estimated Glomerular Filt Rate > 60; Glucose 139 mg/dL (65-110); HDL Direct 40 mg/dL; Potassium 4.6 mmol/L (3.4-5.0); Sodium 138 mmol/L (137-145); Triglycerides 132 mg/dL (<150)
[2024-11-30 15:50] LABS: LDL Cholesterol Direct 98 mg/dL
[2024-11-30 17:24] LABS: Hemoglobin A1C 6.3 % (<5.7)
== END 2024-11-30 09:52 | disposition home or self-care (01) ==
LOC: ANHGOSHLAB 09:52
PROVIDERS: PCP Clinical Nurse Specialist; Visit Provider Clinical Nurse Specialist
DX: E78.2 Mixed hyperlipidemia (principal); I10 Essential (primary) hypertension; R74.01 Elevation of levels of liver transaminase levels; F10.20 Alcohol dependence, uncomplicated; E11.9 Type 2 diabetes mellitus without complications; M10.9 Gout, unspecified
CPT/HCPCS: 36415; 80053; 80061; 82043; 82607; 82746; 83036; 84443; 84550; 85025

== ENCOUNTER 2024-11-30 10:05 | Outpatient (CLI) | payer OTHER, SELFPAY ==
--- NOTE | ~2024-11-30 | XR_ITS ---
3 VIEWS LUMBAR SPINE Ordering provider: ARIANNA Menjivar History: . M54.50 - Low back pain, unspecified . Comparison: July 01, 2005 FINDINGS: VERTEBRAL BODIES: No visible fracture or subluxation. Degenerative changes of the spine. DISK SPACES: Narrowing of the disc T11-T12, T12-L1, L1-L2, L3-L4, L4-L5 and L5-S1. Multilevel facet j oint disease. SOFT TISSUES: Normal. IMPRESSION: No acute osseous abnormality lumbar spine. Multilevel degenerative disc disease. Reviewed, dictated and finalized at location A.
--- NOTE | ~2024-11-30 | XR_ITS ---
3 VIEWS THORACIC SPINE Ordering provider: ARIANNA Menjivar History: . M54.6 - Pain in thoracic spine . Comparison: None. FINDINGS: VERTEBRAL BODIES: Normal height and alignment. No visible fracture or subluxation. Degenerative zuniga es of the spine. DISK SPACES: Multilevel degenerative disc disease in the lower thoracic area. SOFT TISSUES: Granuloma seen in the left lower lobe area. IMPRESSION: No acute osseous abnormality of the thoracic spine. Degenerative changes of the spine. Reviewed, dictated and finalized at location A.
== END 2024-11-30 10:06 | disposition home or self-care (01) ==
LOC: GOSHIMG 10:05
PROVIDERS: PCP Clinical Nurse Specialist; Visit Provider Clinical Nurse Specialist
DX: M51.369 Other intervertebral disc degeneration, lumbar region without mention of lumbar back pain or lower extremity pain (principal); M51.34 Other intervertebral disc degeneration, thoracic region
CPT/HCPCS: 72072; 72100

== ENCOUNTER 2025-01-05 09:56 | Outpatient (CLI) | payer OTHER, SELFPAY ==
--- NOTE | ~2025-01-05 | MR_ITS ---
MRI of the thoracic spine Clinical History: Back pain Technique: Axial T2-weighted and gradient images, and sagittal T1-weighted, T2-weighted, and STIR nolvia ges were acquired. Findings: There is no fracture or subluxation of the thoracic spine. Vertebral bodies maintain normal height and alignment. There is moderate degenerative disc narrowing through the mid to lower thoraci c spine. No significant disc bulge or herniation seen at any thoracic level. No spinal canal stenosis or cord compression identified. Neural foramina are preserved throughout the thoracic spine. No abnormal signal seen in the spinal cord. No epidural mass or collection seen. Paravertebral soft t issues are unremarkable. Impression: Moderate degenerative disc narrowing throughout the mid to lower thoracic spine. No other significant findings. Reviewed, dictated and finalized at [facility]. Impression: Moderate degenerative disc narrowing throughout the mid to lower thoracic spine . No other significant findings.
== END 2025-01-05 09:57 | disposition home or self-care (01) ==
LOC: GOSHIMG 09:57
PROVIDERS: PCP Clinical Nurse Specialist; Visit Provider Clinical Nurse Specialist
DX: M51.34 Other intervertebral disc degeneration, thoracic region (principal)
CPT/HCPCS: 72146

== ENCOUNTER 2025-02-01 14:22 | Outpatient (CLI) | payer OTHER, SELFPAY ==
--- OUTSIDE RECORDS SUMMARY | 2025-02-01 14:29 | XMS_ITS | Referral Summary ---
Author Organization [facility] Address [address] [place] [address] Care Team Providers Care Student Affairs Vice President Name Role Phone Unknown, Notinfile Primary Care Provider Unavail able Sebastian Parmar MD Unavailable [phone] Sebastian Parmar MD Unavailable [phone] Allergies No known active allergies Medications enalapril (VASOTEC) 10 mg tablet Take 1 tablet (10 mg total) by mouth 2 (two) times a day 2 Active metoprolol XL (TOPROL-XL) 100 mg 24 hr tablet Take 1 tablet (100 mg total) by mouth daily 2 Active atorvastatin (LIPITOR) 10 mg tablet Take 1 tablet (10 mg total) by mouth daily Active chlorthalidone 25 mg tablet Take 0.5 tablets (12.5 mg total) by mouth daily 45 tablet 11 2 Active colchicine (COLCRYS) 0.6 mg tablet Take 2 tablets PO, followed by 1 tablet in 1-2 hours. 3 tablet 1 3 Active Additional Information Patient not taking.Reported on 06/16/2023 doxazosin (CARDURA) 2 mg tabletIndication s:Essential hypertension Take 1 tablet (2 mg total) by mouth nightly 90 tablet 3 3 Active amLODIPine (NORVASC) 10 mg tabletIndication s:Essential hypertension Take 1 tablet by mouth once daily 90 tablet 4 Active Active Problems Problem Noted Date Diagnosed Date Overweight 06/10/2022 Myalgia 06/10/2022 Morbid (severe) obesity due to excess calories 0 05/06/2022 Body mass index 40.0-44.9, adult (CMS/HCC) 05/06 Disc degeneration, lumbar 03/18/2022 Chronic right-sided low back pain without sciati ca 03/18/2022 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 03/18/2022 Diffuse idiopathic skeletal hyperostosis 022 Immunizations Immunization Administration Dates Next Due Influenza, Quadrivalent, Spl it, Preservative Free, Intramuscular 07/21/2020 Social History Tobacco Use Types Packs/Day Years Used Date Smoking Tobacco: Former Cigarettes Smokeless Tobacco: Never Sex and Gender Information Value Date Recorded Sex Assigned at Not on file Legal Sex Male 12:10 PM MANAGER CONTACT Gender Identity Not on file Sexual Orientation Not on file Last Filed Vital Signs Vital Sign Reading Time Taken Comments Blood Pressure 120/75 06/16/2023 2:56 PM CDT Pulse 58 06/16/2023 2:56 PM CDT Temperature 36.9 C (98.4 F) 09/10/2022 3:54 PM MANAGER CONTACT Respiratory Rate 18 04/04/2022 2:00 AM CDT Oxygen Saturation 96% 06/10/2022 3:11 PM CDT Inhaled Oxygen Concentration - - Weight 125.9 kg (277 lb 9.6 oz) 06/16/2023 2:56 PM CDT Height 176.5 cm (5' 9.5 ) 06/16/2023 2:56 PM CDT Body Mass Index 40.41 06/16/2023 2:56 PM CDT Plan of Treatment Not on file Procedures Procedure Name Priority Date/Time Associated Diagnosis Comments HEPATITIS C ANTIBODY Routine 11/19/2022 4:16 PM MANAGER CONTACT Abnormal liver scan from Last 3 Months or Most Recently Relevant to Health Maintenance Results * Hepatitis C antibody (11/19/2022 4:16 PM MANAGER CONTACT) Hep C Ab Nonreactive Nonreactive ALEXANDER RUFF Comment: Interpretive Data Nonreactive: Antibodies to HCV not detected. Does NOT exclude the possibility of recent exposure to HCV. Equivocal: Equivocal for HCV antibodies. Supplemental molecular testing will be automatically performed to determine infection status in accordance with current CDC screening recommendations. Reactive: Positive for HCV antibodies. This may represent current or past HCV infection. Supplemental molecular testing will be automatically performed to determine current infection status in accordance with current CDC screening recommendations. Interpretive data was last revised on 2019. Blood Venous blood specimen / Unknown 11/19/2022 4:16 PM MANAGER CONTACT 11/19/2022 6:02 PM MANAGER CONTACT Martin MUNOZ - 11/19/2022 6:55 PM MANAGER CONTACT Fax [phone] paige martinez Paige Martinez MD LAB MICROBIOLOGY - [facility] L ORDERABLES Final Result A[facility] [id number] Department [place] [address] from Last 3 Months or Most Recently Relevant to Health Maintenance Insurance [employer] Address: [facility] [id number] [place] [address] [employer] Address: [facility] [id number] [place] [address] [employer] Address: [facility] [address] [place] [address] NA Member Subscriber Plan / Payer ([facility] Name:Orlando Gonsales Relation to Subscriber:Self Name:ElmapabloOrlando lewis Payer ID:[id number] (NA) Type:[employer] Address: [address] [place] [address] Care Teams Student Affairs Vice President Relationship Specialty Start Date End Date Unknown, Notinfile PCP - General 04/03/22 Sebastian Parmar MD [address] [place] [id number] 04/03/22 Sebastian Parmar MD [address] [place] [address] Internal Medicine 01/01/21
--- OUTSIDE RECORDS SUMMARY | 2025-02-01 14:29 | XMS_ITS | Clinical Summary ---
Author Organization [facility] Address [address] [place] [address] Care Team Providers Care Director Of Real Estate Name Role Phone Unknown, Notinfile Primary Care Provider Unavail able Sebastian Parmar MD Unavailable [phone] Sebastian Parmar MD Unavailable [phone] Allergies No known active allergies Medications enalapril [...] Quadrivalent, Spl it, Preservative Free, Intramuscular 07/21/2020 Medical History Medical History Date Comments Hypertension Hyperlipidemia Diabetes mellitus (HCC) Family History Medical History Relation Name Comments Hypertension Mother Alcohol abuse Other Hypertension Sister Relation Name Status Comments Mother Other Sister Social History Tobacco Use Types Packs/Day Years Used Date Smoking Tobacco: Former Cigarettes Smokeless Tobacco: Never Sex and Gender Information Value Date Recorded Sex Assigned at Not on file Legal Sex Male 12:10 PM ATM MANAGER Gender Identity Not on file Sexual Orientation Not on file Obstetrics History Last Filed Vital Signs Vital Sign [place] Time Taken Comments Blood Pressure 120/75 06/16/2023 2:56 PM CDT Pulse 58 06/16/2023 2:56 PM CDT Temperature 36.9 C (98.4 F) 09/10/2022 3:54 PM ATM MANAGER Respiratory Rate 18 04/04/2022 2:00 AM CDT Oxygen Saturation 96% 06/10/2022 3:11 PM CDT Inhaled Oxygen Concentration - - Weight 125.9 kg (277 lb 9.6 oz) 06/16/2023 2:56 PM CDT Height 176.5 cm (5' 9.5 ) 06/16/2023 2:56 PM CDT Body Mass Index 40.41 06/16/2023 2:56 PM CDT Plan of Treatment Health Maintenance Due Date Last Done Comments Colon Cancer Screening-Colonoscopy 1973 Depression Screening 1973 Prostate Cancer Screening-PSA 1973 DTaP/Tdap/Td Vaccine (1 - Tdap) 1984 Hepatitis B Screening 1991 Regular Well Visit/Exam 18-64 1991 Zoster Vaccine (1 of 2) 2023 Covid-19 Vaccine (2023-2 5 season) 2024 01/16/2021, 12/26/2020 Influenza Vaccine (Season Ended) 2025 07/21/2020 Hepatitis C Screening Completed 11/19/2022 Pneumococcal vaccine <65 Aged Out No longer eligible based on patient's age to complete this topic Procedures Procedure Name Priority Date/Time Associated Diagnosis Comments HEPATITIS C ANTIBODY Routine 11/19/2022 4:16 PM ATM MANAGER Abnormal liver scan from Last 3 Months or Most Recently Relevant to Health Maintenance Results * Hepatitis C antibody (11/19/2022 4:16 PM ATM MANAGER) Hep C Ab Nonreactive Nonreactive ALEXANDER RUFF [...] blood specimen / Unknown 11/19/2022 4:16 PM ATM MANAGER 11/19/2022 6:02 PM ATM MANAGER Narrative ALEXANDER - 11/19/2022 6:55 PM ATM MANAGER Fax [phone] dr paige murphy Paige Murphy MD LAB MICROBIOLOGY - GENERA L ORDERABLES Final Result ALEXANDER [id number] Department [place] [address] from Last 3 Months or Most Recently Relevant to Health Maintenance Insurance CIGNA CIGNA CIGNA CIGNA Care Teams Director Of Real Estate Relationship Specialty Start Date End Date Unknown, Notinfile PCP - General 04/03/22 Sebastian Parmar MD [address] [place] [address] 04/03/22 Sebastian Parmar MD [address] [place] [address] Internal Medicine 01/01/21
[2025-02-01 19:33] LABS: Basophils Percent Auto 0.4 % (0.2-1.2); Eosinophils Absolute Auto 0.2 K/mm3 (0-0.3); Eosinophils Percent Auto 2.2 % (0-4.4); Hematocrit 47.1 % (42.0-52.0); Hemoglobin 15.6 g/dL (14.0-18.0); Immature Granulocyte Absolute 0.02 K/mm3 (0.00-0.031); Immature Granulocyte Percent A 0.2 % (0-0.5); Lymphocytes Absolute Auto 3.28 K/mm3 (0.9-3.2); Lymphocytes Percent Auto 40.9 % (18.3-44.2); Mean Corpuscular HGB Conc 33.1 g/dl (32-36); Mean Corpuscular Hemoglobin 31.5 pg (26-34); Mean Platelet Volume 11.2 fl (7.4-10.4); Monocytes Absolute Auto 0.8 K/mm3 (0.1-0.6); Monocytes Percent Auto 9.7 % (2.6-8.5); Neutrophils Absolute Auto 3.7 K/mm3 (1.3-6.7); Neutrophils Percent Auto 46.6 % (45.5-73.1); Platelet Count Result 172 k/mm3 (150-375); Red Blood Count 4.96 M/mm3 (4.6-6.20); Red Cell Distribution Width 12.7 % (11.5-14.5)
[2025-02-01 20:08] LABS: Alanine Aminotransferase 91 U/L (6-50); Albumin Level 4.5 g/dL (3.5-5.1); Alkaline Phosphatase 68 U/L (38-126); Anion Gap 9 mmol/L (4-12); Aspartate Amino Transferase 91 U/L (17-59); Bilirubin,Total 0.7 mg/dL (0.2-1.3); Blood Urea Nitrogen 20 mg/dL (9-20); Calcium 8.7 mg/dL (8.4-10.2); Carbon Dioxide 24 mmol/L (22-30); Chloride 104 mmol/L (98-107); Estimated Glomerular Filt Rate > 60; Glucose 121 mg/dL (65-110); Potassium 4.3 mmol/L (3.4-5.0); Sodium 137 mmol/L (137-145)
== END 2025-02-01 14:23 | disposition home or self-care (01) ==
LOC: ANHGOSHLAB 14:22
PROVIDERS: PCP Internal Medicine; Visit Provider Clinical Nurse Specialist
DX: R06.00 Dyspnea, unspecified (principal); I10 Essential (primary) hypertension
CPT/HCPCS: 36415; 80053; 84443; 85025

== ENCOUNTER 2025-02-08 09:00 | Outpatient (CLI) | payer OTHER, SELFPAY ==
--- NOTE | ~2025-02-08 | US_ITS ---
Limited Abdominal Sonogram: Real-time sonographic imaging of the right upper quadrant was performed. Clinical History: Alcohol dependence Findings: The liver appears heterogeneous, with nodular contour. Liver measures 19.4 cm in length. N o focal hepatic mass or intrahepatic biliary dilatation seen. Main portal vein demonstrates normal di rection of flow. The gallbladder is well distended, and appears normal with no evidence of gallstone or wall thickening. The common bile duct measures 4 mm. The visualized pancreas, aorta, and IVC are unremarkable. Impression: Findings compatible with cirrhotic change of the liver with associated hepatomegaly. Reviewed, dictated and finalized at location M. Impression: Findings compatible with cirrhotic change of the liver with associated hepatome cornell.
== END 2025-02-08 09:01 | disposition home or self-care (01) ==
LOC: GOSHIMG 09:00
PROVIDERS: PCP Clinical Nurse Specialist; Visit Provider Clinical Nurse Specialist
DX: F10.20 Alcohol dependence, uncomplicated (principal); R74.01 Elevation of levels of liver transaminase levels
CPT/HCPCS: 76705

== ENCOUNTER 2025-04-13 11:16 | Outpatient (CLI) | payer OTHER, SELFPAY ==
--- OUTSIDE RECORDS SUMMARY | 2025-04-13 11:19 | XMS_ITS | Clinical Summary ---
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 SENIOR ANALYTICAL CHEMIST Gender Identity Not on file Sexual Orientation Not on file Obstetrics History Last Filed Vital Signs Vital Sign [place] Time Taken Comments Blood Pressure 120/75 06/16/2023 2:56 PM CDT Pulse 58 06/16/2023 2:56 PM CDT Temperature 36.9 C (98.4 F) 09/10/2022 3:54 PM SENIOR ANALYTICAL CHEMIST Respiratory Rate 18 04/04/2022 2:00 AM CDT Oxygen Saturation 96% 06/10/2022 3:11 PM CDT Inhaled Oxygen Concentration - - Weight 125.9 kg (277 lb 9.6 oz) 06/16/2023 2:56 PM CDT Height 176.5 cm (5' 9.5) 06/16/2023 2:56 PM CDT Body Mass Index 40.41 06/16/2023 2:56 PM CDT Plan of Treatment Health Maintenance Due Date Last Done Comments Colon Cancer Screening-Colonoscopy 1973 Depression Screening 1973 Prostate Cancer Screening-PSA 1973 DTaP/Tdap/Td Vaccine (1 - Tdap) 1984 Hepatitis B Screening 1991 Regular Well Visit/Exam 18-64 1991 Pneumococcal vaccine <65 (1 of 2 - PCV) 1992 Zoster Vaccine (1 of 2) 2023 Covid-19 Vaccine (3 - 2023- season) 2024, 12/26/2020 Influenza Vaccine (Season Ended) 2025 07/21/20 Hepatitis C Screening Completed 11/19/2022 Procedures Procedure Name Priority Date/Time Associated Diagnosis Comments HEPATITIS C ANTIBODY Routine 11/19/2022 4:16 PM SENIOR ANALYTICAL CHEMIST Abnormal liver scan from Last 3 Months or Most Recently Relevant to Health Maintenance Results * Hepatitis C antibody (11/19/2022 4:16 PM SENIOR ANALYTICAL CHEMIST) Hep C Ab Nonreactive Nonreactive ALEXANDER RUFF [...] blood specimen / Unknown 11/19/2022 4:16 PM SENIOR ANALYTICAL CHEMIST 11/19/2022 6:02 PM SENIOR ANALYTICAL CHEMIST Narrative ALEXANDER - 11/19/2022 6:55 PM SENIOR ANALYTICAL CHEMIST Fax [phone] dr paige murphy Paige Murphy MD LAB MICROBIOLOGY - GENERA L ORDERABLES Final Result ALEXANDER [address] Department [place] [address] from Last 3 Months or Most Recently Relevant to Health Maintenance Insurance [employer] [facility] [employer] Address: [facility] [id number] [place] [id number] [employer] [facility] [employer] Address: [facility] [id number] [place] [id number] [employer] [facility] [employer] Address: [facility] [id number] [place] [address] [employer] CHOICE [employer]US [employer] [facility] [employer] Address: [address] [place] [address] Care Teams Software Asset Management Analyst Relationship Specialty Start Date End Date Unknown, Notinfile PCP - General 04/03/22 Sebastian Parmar MD [address] [place] [address] 04/03/22 Sebastian Parmar MD [address] [place] [address] Internal Medicine 01/01/21
--- OUTSIDE RECORDS SUMMARY | 2025-04-13 11:19 | XMS_ITS | Referral Summary ---
Author Organization [facility] Address [address] [place] [address] Care Team Providers Care Buffing Machine Operator Semiautomatic Name Role Phone Unknown, Notinfile Primary Care Provider Unavail able Sebastian Parmar MD Unavailable [phone] Sebastian Parmar MD Unavailable [phone] Allergies No known active allergies Medications [...] on file Legal Sex Male 12:10 PM LEATHER CRAFTSMAN Gender Identity Not on file Sexual Orientation Not on file Last Filed Vital Signs Vital Sign [place] Time Taken Comments Blood Pressure 120/75 06/16/2023 2:56 PM CDT Pulse 58 06/16/2023 2:56 PM CDT Temperature 36.9 C (98.4 F) 09/10/2022 3:54 PM LEATHER CRAFTSMAN Respiratory Rate 18 04/04/2022 2:00 AM CDT [...] HEPATITIS C ANTIBODY Routine 11/19/2022 4:16 PM LEATHER CRAFTSMAN Abnormal liver scan from Last 3 Months or Most Recently Relevant to Health Maintenance Results * Hepatitis C antibody (11/19/2022 4:16 PM LEATHER CRAFTSMAN) Hep C Ab Nonreactive Nonreactive ALEXANDER RUFF [...] blood specimen / Unknown 11/19/2022 4:16 PM LEATHER CRAFTSMAN 11/19/2022 6:02 PM LEATHER CRAFTSMAN Martin MUNOZ - 11/19/2022 6:55 PM LEATHER CRAFTSMAN Fax [phone] dr paige martinez Paige Martinez MD LAB MICROBIOLOGY - [facility] L ORDERABLES Final Result ALEXANDER [address] Department [place] [address] from Last 3 Months or Most Recently Relevant to Health Maintenance Insurance [facility] [place] [employer] Address: [facility] [id number] [place] [address] [facility] [place] [employer] Address: [facility] [id number] [place] [address] [facility] [place] [employer] Address[facility] [id number] [place] [address] [facility] CHO[employer] PLUS [facility] [place] [employer] Address: [facility] [id number] [place] [address] Care Teams Buffing Machine Operator Semiautomatic Relationship Specialty Start Date End Date Unknown, Notinfile PCP - General 04/03/22 Sebastian Parmar MD [address] [place] [address] 04/03/22 Sebastian Parmar MD [address] [place] [address] Internal Medicine 01/01/21
[2025-04-13 13:06] LABS: Alanine Aminotransferase 40 U/L (6-50); Albumin Level 4.4 g/dL (3.5-5.1); Alkaline Phosphatase 65 U/L (38-126); Anion Gap 9 mmol/L (4-12); Aspartate Amino Transferase 47 U/L (17-59); Bilirubin,Total 0.5 mg/dL (0.2-1.3); Blood Urea Nitrogen 19 mg/dL (9-20); Calcium 9.1 mg/dL (8.4-10.2); Carbon Dioxide 27 mmol/L (22-30); Chloride 104 mmol/L (98-107); Estimated Glomerular Filt Rate > 60; Glucose 121 mg/dL (65-110); Potassium 4.1 mmol/L (3.4-5.0); Sodium 140 mmol/L (137-145); Total Protein 8.3 g/dL (6.3-8.2); Uric Acid 7.7 mg/dL (3.5-8.5)
[2025-04-13 13:30] LABS: MALB Creatinine Ratio 8.9 mg/g (0-30)
[2025-04-13 13:48] LABS: Hemoglobin A1C 6.4 % (<5.7)
[2025-04-14 15:09] LABS: Deamidated Gliadin Abs, IgA 5 units (0-19); Deamidated Gliadin Abs, IgG 3 units (0-19); Immunoglobulin A, Qn 352 mg/dL (90-386)
== END 2025-04-13 11:17 | disposition home or self-care (01) ==
LOC: ANHGOSHLAB 11:17
PROVIDERS: PCP Clinical Nurse Specialist; Visit Provider Clinical Nurse Specialist
DX: E11.9 Type 2 diabetes mellitus without complications (principal); K74.60 Unspecified cirrhosis of liver; I10 Essential (primary) hypertension; M10.9 Gout, unspecified; R74.01 Elevation of levels of liver transaminase levels
CPT/HCPCS: 36415; 80053; 82043; 82784; 83036; 84550; 86231; 86258